=== PATIENT | male | born 1935 | race African-American/Black ===

== ENCOUNTER 2024-06-15 06:30 | Emergency (ER) | payer OTHER, BC ==
[2024-06-15 06:36] VITALS: BMI 28.0
[2024-06-15] MEDS ORDERED: MAG HYDROX/AL HYDROX/SIMETH 30 ML UNIT-DOSE CUP ONE (08:29)
[2024-06-15] MEDS ORDERED: FAMOTIDINE 20 MG/50 ML IVPB 20 MG/50 ML MG IVPB ONE (08:29)
[2024-06-15] MEDS: SODIUM CHLORIDE 0.9% 500 ML INFUS.BAG IV ONE (09:01)
[2024-06-15] MEDS: MAG HYDROX/AL HYDROX/SIMETH 30 ML UNIT-DOSE CUP PO ONE (09:01)
[2024-06-15] MEDS: FAMOTIDINE 20 MG/50 ML IVPB 20 MG/50 ML MG IVPB ONE (09:01)
[2024-06-15 09:21] LABS: BASO % 1.1 % (0-2.0); EOS % 0.5 % (0-4.5); HEMATOCRIT 31.6 % (35.4-49); HEMOGLOBIN 10.5 GM/dL (11.7-16.9); INR 1.19 (0.83-1.09); LYMPH % 24.1 % (8-40); MCH 31.1 pg (25.7-33.7); MCHC 33.4 g/dl (32.0-35.9); MEAN CELL VOLUME 93.1 fl (80-96); MEAN PLT VOLUME 7.5 fl (7.5-11.1); MONO % 8.2 % (3.8-10.2); NEUT % 66.1 % (42.8-82.8); PLATELET COUNT 224 10^3/uL (134-434); PROTHROMBIN TIME (PATIENT) 13.1 SEC (9.7-13.0); RDW 17.1 % (11.9-15.9); WHITE BLOOD COUNT 5.9 K/mm3 (4.0-10.0)
[2024-06-15 09:24] LABS: ACTIVATED PTT 23.2 SECONDS (25.2-36.5)
[2024-06-15 09:33] LABS: POTASSIUM 4.6 mmol/L (3.5-5.1)
[2024-06-15 09:36] LABS: CALCIUM 9.2 mg/dL (8.5-10.1)
[2024-06-15 09:37] LABS: ALBUMIN 2.9 g/dl (3.4-5.0); BLOOD UREA NITROGEN 28.5 mg/dL (7-18); MAGNESIUM 1.9 mg/dL (1.8-2.4)
[2024-06-15 09:40] LABS: CREATININE 2.2 mg/dL (0.55-1.3); PHOSPHOROUS 3.2 mg/dL (2.5-4.9)
[2024-06-15 09:41] LABS: BILIRUBIN,TOTAL 0.7 mg/dL (0.2-1)
[2024-06-15 10:27] VITALS: RESP 18
[2024-06-15 12:30] VITALS: BP 177/87; PULSE 83; TEMP 98
== END 2024-06-15 12:34 | disposition home or self-care (01) ==
LOC: JER 06:30
PROC: 3E033GC Introduction of Other Therapeutic Substance into Peripheral Vein, Percutaneous Approach (ICD-10-PCS; principal; 2024-06-15)
DX: K92.1 Melena (principal); R53.83 Other fatigue; R10.84 Generalized abdominal pain; R14.0 Abdominal distension (gaseous); K64.9 Unspecified hemorrhoids; T36.4X5A Adverse effect of tetracyclines, initial encounter; T36.8X5A Adverse effect of other systemic antibiotics, initial encounter; T50.995A Adverse effect of other drugs, medicaments and biological substances, initial encounter
CPT/HCPCS: 36415; 74176-TC; 80053; 82272; 83690; 83735; 84100; 85025; 85610; 85730; 86850; 86900; 86901; 93005; 93010; 99285-25